=== PATIENT | female | born 1990 | race Caucasian/White ===

== ENCOUNTER 2023-10-27 18:24 | Emergency (ER) | payer OTHER ==
[~2023-10-27] VITALS: Ht 167.6 cm; Wt 61.4 kg
[~2023-10-27 18:24] MED LIST: CEPHALEXIN500 M1 PO; ONDANSETRON ODT8 MG PO
[2023-10-27 19:02] LABS: BILIRUBIN, URINE NEGATIVE (negative); BLOOD/HGB, URINE SMALL (Negative); KETONE, URINE NEGATIVE (Negative); LEUK ESTERASE, URINE NEGATIVE (negative); NITRITE, URINE NEGATIVE (negative)
[2023-10-27 19:10] LABS: BASOPHILS 0.7 % (0-2); EOSINOPHILS 1.2 % (0-6); HEMATOCRIT 38.8 % (35.0-50.0); HEMOGLOBIN 13.3 g/dL (12.0-18.0); LYMPHOCYTES 51.4 % (24-44); MCH 31.7 (27-36); MCHC 34.4 g/dl (30-36); MCV 91.9 fl (81-99); MONOCYTES 9.5 % (0-12); NEUTROPHILS 37.2 % (39-80); PLATELET COUNT 259 K/uL (140-440); RBC 4.22 M/ul (4.3-5.7); RDW 13.5 (10.5-15.0)
[2023-10-27 19:11] LABS: BACTERIA, URINE NONE SEEN /hpf (negative); CASTS, URINE NONE SEEN \\lpf; COLLECTION TYPE, URINE CLEAN CATCH; CRYSTALS, URINE NONE SEEN (0-1+); EPITHELIAL CELLS, URINE 0 /lpf (0-1+); REFLEX CULTURE, URINE No (No); WHITE BLOOD CELLS, URINE 0-1 /HPF (0-5)
[2023-10-27 19:25] LABS: ANION GAP 12.3 (7-21); BILIRUBIN, TOTAL 0.5 ng/dL (0.2-1.0); BUN/CREATININE RATIO 10.11 (6.0-28.6); CALCIUM 9.9 mg/dL (8.5-10.1); CREATININE, SERUM 0.89 mg/dL (0.55-1.02); POTASSIUM 3.3 mmol/L (3.5-5.1)
[2023-10-27] MEDS ORDERED: LACTATED RINGER'S 1,000 ML IV ONE (20:45)
[2023-10-27] MEDS ORDERED: KETOROLAC TROMETHAMINE 30 MG/ML VIAL IV ONE (21:15)
[2023-10-27 22:06] VITALS: BP 105/74
== END 2023-10-27 22:05 | disposition home or self-care (01) ==
LOC: ED 18:24
PROVIDERS: Emergency Medicine
DX: R10.32 Left lower quadrant pain (principal); Z90.710 Acquired absence of both cervix and uterus; Z88.0 Allergy status to penicillin; Z91.018 Allergy to other foods
CPT/HCPCS: 36415; 74177; 80053; 81001; 83690; 85025; 99285-25; J1885; J7121; Q9967

== ENCOUNTER 2024-07-23 11:03 | Emergency (ER) | payer OTHER ==
[~2024-07-23] VITALS: Ht 167.6 cm; Wt 57.0 kg
[2024-07-23] MEDS ORDERED: IBUPROFEN 600 MG TAB PO ONE (14:00)
[2024-07-23] MEDS ORDERED: HYDROCODON-ACE1 EA10 PO (15:19)
[2024-07-23 15:25] VITALS: BP 114/79
== END 2024-07-23 15:25 | disposition home or self-care (01) ==
LOC: ED 11:03
DX: S46.912A Strain of unspecified muscle, fascia and tendon at shoulder and upper arm level, left arm, initial encounter (principal); Z88.0 Allergy status to penicillin; Z91.018 Allergy to other foods; V03.90XA Pedestrian on foot injured in collision with car, pick-up truck or van, unspecified whether traffic or nontraffic accident, initial encounter
CPT/HCPCS: 73030; 73552; 99284; A9270